=== PATIENT | female | born 1995 | race Hispanic/Latino ===

== ENCOUNTER 2022-03-01 10:42 | Outpatient (CLI) | payer OTHER | END 2022-03-01 10:43 | disposition home or self-care (01) | LOC: CSHULT 10:42 | PROVIDERS: ATTEND Family Medicine | DX: Z34.82 Encounter for supervision of other normal pregnancy, second trimester (principal); Z3A.20 20 weeks gestation of pregnancy | CPT/HCPCS: 76805 ==

== ENCOUNTER 2022-07-05 18:00 | Inpatient (IN) | payer MEDICAID, OTHER ==
[2022-07-05] MEDS ORDERED: Acetaminophen 500 MG TAB PO PRN (18:39)
[2022-07-05] MEDS ORDERED: hydrALAZINE 20 MG/ML VIAL SLOW IVP PRN (18:39)
[2022-07-05] MEDS ORDERED: Ibuprofen 800 MG TAB PO PRN (18:39)
[2022-07-05] MEDS ORDERED: Fentanyl 100 MCG/2 ML VIAL SLOW IVP PRN (18:39)
[2022-07-05] MEDS ORDERED: NS w/ Oxytocin 30 units 500 ML IV SCH ×3 (18:39)
[2022-07-05] MEDS ORDERED: Methylergonovine 0.2 MG/ML VIAL IM PRN (18:39)
[2022-07-05] MEDS ORDERED: Promethazine HCl 25 MG/ML VIAL IM PRN (18:39)
[2022-07-05] MEDS ORDERED: Tranexamic Acid 1,000 MG/10 ML VIAL IVP PRN (18:39)
[2022-07-05] MEDS ORDERED: Carboprost 250 MCG/ML AMP IM PRN (18:39)
[2022-07-05] MEDS ORDERED: Ondansetron PF 4 MG/2 ML Vial IVP PRN (18:39)
[2022-07-05] MEDS ORDERED: Lidocaine 1% (PF) 30 ML VIAL SC PRN (18:39)
[2022-07-05] MEDS ORDERED: Butorphanol Tartrate 1 MG/ML VIAL SLOW IVP PRN (18:39)
[2022-07-05] MEDS ORDERED: Misoprostol 200 MCG TAB PR PRN (18:39)
[2022-07-05] MEDS ORDERED: HYDROcodone/Acetaminophen 5/325 mg Tablet PO PRN (18:39)
[2022-07-05] MEDS ORDERED: Diphenoxylate HCl/Atropine Tablet PO PRN (18:39)
[2022-07-05] MEDS: Lactated Ringer's 1,000 ML IV SCH (18:40)
[2022-07-05 19:21] LABS: Hemoglobin 10.8 g/dL (12.0-15.5); Mean Corpuscular HGB CONC 33.1 g/dL (32.0-36.0); Mean Corpuscular Hemoglobin 28.1 pg (27.0-33.0); Mean Corpuscular Volume 84.7 fl (81.6-98.3); Platelet Count 256 10x3/uL (150-450); RBC Distribution Width 13.9 % (11.5-14.5); Red Blood Cell (RBC) Count 3.85 10x6/uL (3.90-5.03); White Blood Cell (WBC) Count 8.2 10x3/uL (3.5-10.5)
[2022-07-05 19:53] LABS: HBSAg Index 0.14 S/CO (0-0.99); Hep B Surf Ag - L&D Non-Reactive S/CO (NonReactive)
[2022-07-05 19:54] LABS: Syphilis Antibody Nonreactive (Nonreactive); Syphilis Antibody Index 0.07 S/CO (<1.00 Non-Reactive)
[2022-07-05 19:57] VITALS: BMI 41.0
[2022-07-05] MEDS: Misoprostol 100 MCG TAB PO SCH ×2 (20:48→22:40)
[2022-07-06] MEDS: Lactated Ringer's 1,000 ML IV SCH ×3 (02:39→12:56)
[2022-07-06] MEDS: Misoprostol 100 MCG TAB PO SCH (06:39)
[2022-07-06] MEDS ORDERED: Fentanyl 2 mcg/Bup 0.1% Cadd 100 ML ONE (09:21)
[2022-07-06] MEDS ORDERED: diphenhydrAMINE 50 MG/ML VIAL IVP PRN (09:49)
[2022-07-06] MEDS ORDERED: ePHEDrine Sulfate 50 MG/10 ML VIAL SLOW IVP PRN (09:49)
[2022-07-06] MEDS ORDERED: Naloxone HCl 0.4 mg/ml Vial IVP PRN ×2 (09:49)
[2022-07-06] MEDS ORDERED: Lactated Ringer's 500 ML IV PRN (09:49)
[2022-07-06] MEDS ORDERED: Moisturizing Cream (Eucerin) 113 GM JAR TOP PRN (09:49)
[2022-07-06] MEDS ORDERED: Acetaminophen 325 MG TAB PO PRN (09:49)
[2022-07-06] MEDS ORDERED: Ondansetron PF 4 MG/2 ML Vial IVP PRN ×2 (09:49→23:11)
[2022-07-06] MEDS ORDERED: Promethazine HCl 25 MG/ML VIAL IM PRN (09:49)
[2022-07-06] MEDS ORDERED: Communication Order-Pharmacy FS SCH (10:00)
[2022-07-06] MEDS: Fentanyl 2 mcg/Bupivacaine 0.1% Cassette 100 ML EPIDURAL SCH ×2 (11:00→16:07)
[2022-07-06] MEDS ORDERED: Carboprost 250 MCG/ML AMP ONE (20:51)
[2022-07-06] MEDS ORDERED: Tranexamic Acid 1,000 MG/10 ML VIAL ONE (21:07)
[2022-07-06] MEDS ORDERED: Tranexamic Acid 1,000 MG/10 ML VIAL IVP SCH (21:15)
[2022-07-06] MEDS ORDERED: Milk Of Magnesia 30 ML UDCUP PO PRN (23:11)
[2022-07-06] MEDS ORDERED: Boostrix 0.5 ML (Tdap) VIAL (>/=7 yrs of age) IM ONE (23:11)
[2022-07-06] MEDS ORDERED: Lanolin Ointment 7 GM TUBE TOP PRN (23:11)
[2022-07-06] MEDS ORDERED: Bisacodyl 10 MG SUPP PR PRN (23:11)
[2022-07-06] MEDS ORDERED: diphenhydrAMINE 25 MG CAP PO PRN (23:11)
[2022-07-06] MEDS ORDERED: hydrALAZINE 20 MG/ML VIAL SLOW IVP PRN (23:11)
[2022-07-06] MEDS ORDERED: HYDROcodone/Acetaminophen 5/325 mg Tablet PO PRN (23:11)
[2022-07-06] MEDS ORDERED: Docusate 100 MG CAP PO SCH (23:30)
[2022-07-07] MEDS: HYDROcodone/Acetaminophen 5/325 mg Tablet PO PRN ×3 (00:18→20:06)
[2022-07-07] MEDS ORDERED: Misoprostol 200 MCG TAB PO SCH (02:00)
[2022-07-07] MEDS: Ibuprofen 800 MG TAB PO SCH ×3 (02:08→17:55)
[2022-07-07] MEDS ORDERED: Diphenoxylate HCl/Atropine Tablet PO SCH (08:30)
[2022-07-07] MEDS: Prenatal Vitamin 1 TAB PO SCH (09:08)
[2022-07-07] MEDS: Ferrous Sulfate 325 MG TAB PO SCH ×2 (09:26→19:03)
[2022-07-07] MEDS: Docusate 100 MG CAP PO SCH ×2 (09:27→20:06)
[2022-07-08] MEDS: Ibuprofen 800 MG TAB PO SCH ×2 (01:45→09:19)
[2022-07-08 08:03] VITALS: BP 109/52; TEMP 98
[2022-07-08] MEDS: Ferrous Sulfate 325 MG TAB PO SCH (08:53)
[2022-07-08] MEDS: Docusate 100 MG CAP PO SCH (09:20)
[2022-07-08] MEDS: Prenatal Vitamin 1 TAB PO SCH (09:20)
== END 2022-07-08 16:35 | disposition home or self-care (01) | DRG 807 ==
LOC: CSHLD 18:15 → CSHPP 07-07 00:48
PROVIDERS: ADMIT Family Medicine; ATTEND Family Medicine
PROC: 10E0XZZ Delivery of Products of Conception, External Approach (ICD-10-PCS; principal; 2022-07-06)
PROC: 3E0334Z Introduction of Serum, Toxoid and Vaccine into Peripheral Vein, Percutaneous Approach (ICD-10-PCS; 2022-07-06)
PROC: 3E0P7VZ Introduction of Hormone into Female Reproductive, Via Natural or Artificial Opening (ICD-10-PCS; 2022-07-06)
DX: O26.893 Other specified pregnancy related conditions, third trimester (principal); Z37.0 Single live birth; Z67.41 Type O blood, Rh negative; Z88.0 Allergy status to penicillin; Z3A.39 39 weeks gestation of pregnancy; Z79.899 Other long term (current) drug therapy; O69.81X0 Labor and delivery complicated by cord around neck, without compression, not applicable or unspecified; O72.2 Delayed and secondary postpartum hemorrhage
CPT/HCPCS: 36415; 51702; 85027; 85461; 86780; 86850; 86900; 86901; 87340; 90384; 96372; J2210; J2590; J3490; J7120

== ENCOUNTER 2024-03-26 10:59 | Emergency (ER) | payer MEDICAID, SELFPAY ==
[2024-03-26] MEDS ORDERED: Lidocaine 2% PF 5 ML VIAL ONE (13:13)
[2024-03-26] MEDS ORDERED: Lidocaine Viscous Sol 2% 15 ml UD Cup ONE (13:16)
== END 2024-03-26 20:21 | disposition short-term general hospital (02) ==
LOC: CSHERS 10:59
DX: T17.328A Food in larynx causing other injury, initial encounter (principal); W44.F3XA Food entering into or through a natural orifice, initial encounter; Y93.89 Activity, other specified
CPT/HCPCS: 70360